=== PATIENT | male | born 1970 | race Caucasian/White ===

== ENCOUNTER 2016-09-06 10:12 | Emergency (ER) | payer OTHER ==
[2016-09-06 10:20] VITALS: RESP 16
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
[2016-09-06 11:51] VITALS: BP 113/71; PULSE 61; TEMP 98.1; O2SAT 96
== END 2016-09-06 11:51 | disposition home or self-care (01) ==
DX: S09.90XA Unspecified injury of head, initial encounter (principal); V89.2XXA Person injured in unspecified motor-vehicle accident, traffic, initial encounter